=== PATIENT | male | born 1960 | race Caucasian/White ===

== ENCOUNTER 2022-11-02 14:50 | Emergency (ER) | payer OTHER ==
[~2022-11-02] VITALS: Ht 170.2 cm; Wt 76.2 kg
[2022-11-02 15:04] VITALS: BP 191/81
[2022-11-02] MEDS ORDERED: KETOROLAC 30 MG/ML VIAL IM ONE (15:15)
[2022-11-02] MEDS ORDERED: HYDROcodone/APAP 5/325 MG 1 TAB TAB PO ONE (15:35)
--- NOTE | 2022-11-02 15:35 | NUR ---
62/M PRESENTS TO ED WITH C/O 10/10 SHARP RLQ PAIN SINCE THIS MORNING, DENIES N/V/D, DENIES TAKING MEDS FOR PAIN. PATIENT STATES "I THINK MY APPENDIX IS GOING TO BURST." DENIES RECENT FEVERS, CHILLS OR RECENT SICK CONTACTS.
[2022-11-02 16:06] LABS: BASOPHILS # (AUTO) 0.2 K/uL (0.00-0.22); BASOPHILS % (AUTO) 2.8 % (0.0-2.0); EOSINOPHILS # (AUTO) 0.1 K/uL (0-0.4); EOSINOPHILS % (AUTO) 1.2 % (0.0-4.0); HEMATOCRIT 45.6 % (36-52); HEMOGLOBIN 15.9 g/dL (12.0-18.0); LYMPHOCYTES # (AUTO) 1.3 K/uL (2.0-11.5); LYMPHOCYTES % (AUTO) 21.4 % (20.5-51.1); MEAN CORPUSCULAR HEMOGLOBIN 34 pg (27-31); MEAN CORPUSCULAR HGB CONC 35 g/dL (33-37); MEAN CORPUSCULAR VOLUME 96.1 fL (80-94); MONOCYTES # (AUTO) 0.7 K/uL (0.8-1.0); MONOCYTES % (AUTO) 11.9 % (1.7-9.3); NEUTROPHILS # (AUTO) 3.7 K/uL (1.8-7.7); NEUTROPHILS % (AUTO) 62.7 % (42.2-75.2); PLATELET COUNT (AUTO) 169 K/uL (140-450); RED BLOOD CELL COUNT(AUTO) 4.75 MIL/uL (4.20-6.10); RED CELL DISTRIBUTION WIDTH 13.7 % (11.6-13.7)
[2022-11-02 16:25] LABS: ALBUMIN 4.2 g/dL (3.4-5.0); ANION GAP 12.9 (8-16); CARBON DIOXIDE 27.6 mmol/L (21-32); CREATININE 0.7 mg/dL (0.6-1.3); POTASSIUM 4.5 mmol/L (3.5-5.1); TOTAL BILIRUBIN 1.2 mg/dL (0.0-1.0)
[2022-11-02 17:47] VITALS: BP 187/88
[2022-11-02 18:03] LABS: APPEARANCE,URINE CLEAR (CLEAR); BILIRUBIN,URINE NEGATIVE (NEGATIVE); BLOOD, URINE NEGATIVE (NEGATIVE); COLOR,URINE YELLOW (YELLOW); LEUKOCYTE ESTERASE ,URINE NEGATIVE (NEGATIVE); NITRITE, URINE NEGATIVE (NEGATIVE); PH,URINE 6.5 (5.0-9.0); UGLUCOSE NEGATIVE (NEGATIVE)
--- NOTE | 2022-11-02 18:20 | NUR ---
PATIENTS BP 187/88, DR. VEGAS MADE AWARE, STATED PATIENT OKAY TO BE D/C
[2022-11-02] MEDS ORDERED: ACET-2619 PO (18:22)
--- NOTE | 2022-11-02 18:27 | NUR ---
PATIENT LEFT W/O DC WORK/INSTRUCTIONS
== END 2022-11-02 18:26 | disposition home or self-care (01) ==
LOC: MED 14:50
DX: R10.31 Right lower quadrant pain (principal); I10 Essential (primary) hypertension; F15.90 Other stimulant use, unspecified, uncomplicated; Z79.899 Other long term (current) drug therapy; Z88.6 Allergy status to analgesic agent
CPT/HCPCS: 36415; 80053; 81003; 83690; 85025; 99284